=== PATIENT | male | born 1940 | race Caucasian/White ===

== ENCOUNTER → 2021-01-24 | Outpatient (CLI) | payer OTHER | LOC: LAB 05:46 | PROVIDERS: ATTEND Student in an Organized Health Care Education/Training Program | DX: Z01.812 Encounter for preprocedural laboratory examination (principal); Z20.822 Contact with and (suspected) exposure to COVID-19 ==

== ENCOUNTER → 2021-01-28 | Outpatient (CLI) | payer OTHER ==
[~2021-01-28] VITALS: Ht 185.4 cm; Wt 95.3 kg
[~2021-01-28] MED LIST: ASPIRIN EC81 M1 PO; ATORVASTATIN CA80 MG PO; CARVEDILOL3.125 MG PO; CENTRUM SILVER1 EAC7 PO; ELIQUIS5 MG PO; ISOSORBIDE MON120 MG PO; LEVETIRACETAM500 M1 PO; LOVENOX100 MG/1 M SUBQ; METFORMIN HCL1000 M1 PO; OMEPRAZOLE20 M2 PO; VITAMIN B122500 MCG PO; VITAMIN D3 COM1 EACH PO; ZESTRIL40 MG PO
--- NOTE | 2021-01-30 13:08 | PATH ---
[facility] [address] [place] [address] PATHOLOGY RPT PROCEDURE Name: FLAVIA GREEN Ashley Room #: [facility].#: [id number] Admission: 01/28/21 Date of : 42 Discharge: Report #: [id number] Path Case #: [id number] [facility] Accession Number: [id number] . 01 Material submitted: . colon - ASCENDING COLON POLYP. Modifiers: ascending . 01 Clinical history: . COLONOSCOPY COLON POLYP, DIVERTICULOSIS, INTERNAL HEMORRHOIDS . 02 Diagnosis: Polyp, ascending colon polyp, endoscopic biopsy: - Tubular adenoma. - Negative for high-grade dysplasia. (IUV:evelin; 01/29/2021) QMS 01/29/2021 1517 Local . 02 Electronically signed: . Yoselyn Perla MD, Pathologist NPI- [id number] . 01 Gross description: . The specimen is received in formalin, labeled "Flavia Jimi, ascending colon polyp". Received is a segment of pale abbott tissue measuring 0.5 cm in maximum dimensions. The specimen is submitted entirely in cassette A1. (CAA; 01/28/2021) QA/QA 01/28/2021 1525 Local . 02 Pathologist provided ICD-10: D12.2 . 02 CPT . 729995 Specimen Comment: A courtesy copy of this report has been sent to [phone], [phone] Specimen Comment: 1988 Specimen Comment: Report sent to / DR STROUD Specimen Comment: A duplicate report has been generated due to demographic updates. Performed at: [address] [id number] MD Deshaun Larios MD Phone: [phone] Performed at: [address] [id number] [address] [address] PATHOLOGY RPT PROCEDURE Name: FLAVIA GREEN Room #: [facility].#: [id number] Admission: 01/28/21 Date of : 42 Discharge: Report #: [id number] Path Case #: [id number] MD Yoselyn Perla MD Phone: [phone]
== END | disposition home or self-care (01) ==
LOC: GI
PROVIDERS: ATTEND Internal Medicine Gastroenterology
DX: Z12.11 Encounter for screening for malignant neoplasm of colon (principal); Z86.010 Personal history of colon polyps; D12.2 Benign neoplasm of ascending colon; K57.30 Diverticulosis of large intestine without perforation or abscess without bleeding; K64.8 Other hemorrhoids; K21.9 Gastro-esophageal reflux disease without esophagitis; I10 Essential (primary) hypertension; E11.9 Type 2 diabetes mellitus without complications; I48.91 Unspecified atrial fibrillation; E78.00 Pure hypercholesterolemia, unspecified; I25.10 Atherosclerotic heart disease of native coronary artery without angina pectoris; I25.2 Old myocardial infarction; G47.30 Sleep apnea, unspecified; Z86.73 Personal history of transient ischemic attack (TIA), and cerebral infarction without residual deficits; Z98.890 Other specified postprocedural states; Z79.899 Other long term (current) drug therapy
CPT/HCPCS: 62110; 62900